=== PATIENT | male | born 1990 | race Caucasian/White ===

== ENCOUNTER 2016-12-14 14:17 | Emergency (ER) | payer OTHER ==
[~2016-12-14] VITALS: Ht 175.3 cm; Wt 70.0 kg
[~2016-12-14 14:17] MED LIST: PERC5TAB12 PO
[2016-12-14 14:19] VITALS: BP 154/80; PULSE 94; RESP 15; TEMP 98.2; O2SAT 98
[2016-12-14] MEDS ORDERED: DOXY100C PO (15:13)
[2016-12-14] MEDS ORDERED: OXYC1TAB63 PO (15:13)
[2016-12-14] MEDS ORDERED: MORPHINE SULFATE 4 MG/ML INJ IM ONE (15:15)
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
[2016-12-14] MEDS: MORPHINE SULFATE 4 MG/ML INJ IV PUSH ONE ×2 (16:27→16:34)
[2016-12-14 16:39] VITALS: RESP 20
[2016-12-14 16:50] VITALS: BP 120/81; TEMP 97.8
--- NOTE | 2016-12-14 17:27 | PD ---
Data Data Last Documented VS Vital Signs Date Time Temp Pulse Resp B/P (MAP) Pulse Ox O2 Delivery O2 Flow Rate FiO2 12/14/16 16:50 97.8 86 18 120/81 (94) 99 Orders Orders Morphine Inj (Morphine Inj) (12/14/16 15:15) ^ Insert Iv (12/14/16 16:19) Morphine Inj (Morphine Inj) (12/14/16 16:30) MDM Supervised Visit with DERIAN: Yes Narrative Course The history, exam, and medical decision-making in the associated mid-level provider note were completed with my assistance. I reviewed and agree with the findings presented. I attest that I had a [id number] encounter with the patient on the same day, and personally performed and documented my assessment and findings in the medical record. *My assessment and Findings: Status post partial dictation a couple fingers. He took the bandage off today as instructed for the first time in several days. Looks well overall. I don't think is any infection. The small area of white on the lateral aspect 1 the wounds. I think this is probably G[place]. They're worried it; maybe cartilage. I don't think this is the case. In any case is no infection. I did continue the current treatment. Diagnosis Primary Impression: Encounter for postoperative wound check Additional Impression: Partial traumatic transphalangeal amputation of finger Referrals: Hand Surgeon Patient Instructions: General Instructions, Acute Wound Care (GEN) Departure Forms: Tests/Procedures Additional Instruction: Keep the wound clean, dry and covered. Change the dressings daily as discussed. Continue with pain medications and antibiotics as previously prescribed. Follow-up with the hand surgeon as discussed. Return to the ED for any urgent or emergent medical condition. Disposition: 01 DISCHARGE HOME Condition: Stable Roger Harrison MD Dec 14, 2016 17:27
== END 2016-12-14 17:20 | disposition home or self-care (01) ==
LOC: NEPD 14:17
DX: S68.620D Partial traumatic transphalangeal amputation of right index finger, subsequent encounter (principal); S68.622D Partial traumatic transphalangeal amputation of right middle finger, subsequent encounter; J45.909 Unspecified asthma, uncomplicated; W31.89XD Contact with other specified machinery, subsequent encounter; Z79.899 Other long term (current) drug therapy
CPT/HCPCS: 96372; 96374; 99284; J2270